=== PATIENT | male | born 1980 | race Hispanic/Latino ===

== ENCOUNTER 2018-03-15 23:04 | Inpatient (IN) | payer OTHER ==
[~2018-03-15] VITALS: Ht 180.3 cm; Wt 99.8 kg
[~2018-03-15 23:04] MED LIST: NALTREXONE HCL50 MG PO; PEN-VEE K,VEET500 MG PO; PERCOCET 5/31 TABLET PO
[2018-03-15 23:23] LABS: BASOPHIL (%) 0.3 % (0-1); BASOPHIL COUNT 0.1 K/uL (0-0.1); EOSINOPHIL (%) 2.2 % (0-5); EOSINOPHIL COUNT 0.4 K/uL (0-0.3); HEMATOCRIT 40.1 % (38.0-50.0); HEMOGLOBIN 13.7 G/DL (12.5-16.6); IMMATURE GRANULOCYTE (%) 0.7 % (0.0-0.7); LYMPHOCYTE COUNT 5.2 K/uL (1.0-2.8); MCH 32.9 PG (29.0-34.0); MCHC 34.2 G/DL (30.0-36.0); MCV 96.2 FL (86-99); MONOCYTE (%) 6.9 % (3-12); MONOCYTE COUNT 1.1 K/uL (0-0.8); NEUTROPHIL (%) 56.9 % (45-76); NEUTROPHIL COUNT 8.9 K/uL (1.8-6.4); PLATELET COUNT 253 K/uL (156-360); RBC DIS.WIDTH-CV 12.8 % (11.8-14.6); RBC DIS.WIDTH-SD 45.3 % (39-53); RED BLOOD COUNT 4.17 M/uL (4.00-5.50); WHITE BLOOD COUNT 15.6 K/uL (4.1-10.2)
[2018-03-15 23:32] LABS: AMYLASE 79 IU/L (1-118); CHLORIDE 105 mEq/L (99-109); SODIUM 139 mEq/L (136-147)
[2018-03-15 23:34] LABS: GLUCOSE 181 mg/dL (70-99)
[2018-03-15 23:37] LABS: SERUM ETHYL ALCOHOL < 10 mg/dL
[2018-03-15 23:38] LABS: CREATININE 1.3 mg/dL (0.6-1.3); GFR ESTIMATE (CALCULATED) > 59 mL/min/ (58.99-99999); UREA NITROGEN (BUN) 17 mg/dL (9-23)
[2018-03-15 23:41] LABS: LIPASE 37 U/L (1.0-51.0)
[2018-03-16] MEDS ORDERED: ONE DAILY FOR1 EACH PO (00:55)
[2018-03-16] MEDS ORDERED: METHADONE 22 MG/1 ML PO (00:59)
[2018-03-16 03:06] VITALS: BP 119/74
[2018-03-16 05:20] LABS: HEMATOCRIT 38.7 % (38.0-50.0); HEMOGLOBIN 13.1 G/DL (12.5-16.6); MCH 32.7 PG (29.0-34.0); MCHC 33.9 G/DL (30.0-36.0); MCV 96.5 FL (86-99); PLATELET COUNT 231 K/uL (156-360); RBC DIS.WIDTH-CV 12.8 % (11.8-14.6); RBC DIS.WIDTH-SD 45.5 % (39-53); RED BLOOD COUNT 4.01 M/uL (4.00-5.50); WHITE BLOOD COUNT 15.6 K/uL (4.1-10.2)
[2018-03-16 05:41] LABS: CHLORIDE 104 MEQ/L (99-109); CREATININE 1.1 MG/DL (0.6-1.3); GFR ESTIMATE (CALCULATED) > 59 mL/min/ (58.99-99999); POTASSIUM 4.4 MEQ/L (3.7-5.4); SODIUM 136 MEQ/L (136-147); UREA NITROGEN (BUN) 15 mg/dL (9-23)
[2018-03-16 05:43] LABS: GLUCOSE 109 mg/dL (70-99)
[2018-03-16 08:25] VITALS: BP 142/92
[2018-03-16 16:14] VITALS: BP 133/86
[2018-03-16 16:21] LABS: APPEARANCE CLEAR ((CLEAR)); BILIRUBIN NEGATIVE; BLOOD NEGATIVE; COLOR YELLOW ((YELLOW)); GLUCOSE (STRIP) NEGATIVE; KETONES NEGATIVE; LEUKOCYTES NEGATIVE; NITRITE NEGATIVE; PROTEIN (STRIP) NEGATIVE; SPECIFIC GRAVITY 1.029 (1.000-1.030); UCUL ADDED? NO; UROBILINOGEN 0.2 MG/DL (0.2-1.0)
[2018-03-16 16:47] LABS: COCAINE NEGATIVE (150 ng/mL); METHAMPHETAMINE NEGATIVE (500 ng/mL); OPIATES (MORPHINE) PRESUMPTIVE POSITIVE (100 ng/mL); PHENCYCLIDINE NEGATIVE (25 ng/mL); THC CANNABINOIDS NEGATIVE (50 ng/mL)
[2018-03-16 16:48] LABS: AMPHETAMINE NEGATIVE (500 ng/mL); BARBITURATES NEGATIVE (200 ng/mL); BENZODIAZEPINES NEGATIVE (150 ng/mL); BUPRENORPHINE NEGATIVE (10 ng/mL); METHADONE PRESUMPTIVE POSITIVE (200 ng/mL); OXYCODONE NEGATIVE (100 ng/mL); PROPOXYPHENE NEGATIVE (300 ng/mL); TRICYCLIC ANTIDEPRESSANTS NEGATIVE (300 ng/mL)
[2018-03-16 20:25] VITALS: BP 127/81
[2018-03-16 23:45] VITALS: BP 137/86
[2018-03-17 05:55] LABS: HEMATOCRIT 37.7 % (38.0-50.0); HEMOGLOBIN 12.5 G/DL (12.5-16.6); MCH 32.2 PG (29.0-34.0); MCHC 33.2 G/DL (30.0-36.0); MCV 97.2 FL (86-99); PLATELET COUNT 213 K/uL (156-360); RBC DIS.WIDTH-SD 46.5 % (39-53); RED BLOOD COUNT 3.88 M/uL (4.00-5.50); WHITE BLOOD COUNT 10.9 K/uL (4.1-10.2)
[2018-03-17 06:34] LABS: CHLORIDE 103 MEQ/L (99-109); CREATININE 0.9 MG/DL (0.6-1.3); GFR ESTIMATE (CALCULATED) > 59 mL/min/ (58.99-99999); GLUCOSE 87 mg/dL (70-99); POTASSIUM 4.2 MEQ/L (3.7-5.4); SODIUM 137 MEQ/L (136-147); UREA NITROGEN (BUN) 13 mg/dL (9-23)
[2018-03-17 08:05] VITALS: BP 140/96
[2018-03-17 15:37] VITALS: BP 137/82
[2018-03-17 23:01] VITALS: BP 134/92
[2018-03-18 08:10] VITALS: BP 133/86
[2018-03-18 16:04] VITALS: BP 143/81
== END 2018-03-18 19:42 | disposition home or self-care (01) | DRG 89 ==
LOC: TRA 23:04 → 3EAST 03-16 01:24 → EDOF 03-16 01:24 → ENRESERV 03-16 01:29 → 3EAST 03-16 02:20
PROVIDERS: Emergency Medicine; Thoracic Surgery (Cardiothoracic Vascular Surgery)
PROC: 2W3EX1Z Immobilization of Right Hand using Splint (ICD-10-PCS; principal; 2018-03-16)
DX: S06.0X9A Concussion with loss of consciousness of unspecified duration, initial encounter (principal); F11.20 Opioid dependence, uncomplicated; S02.40EA Zygomatic fracture, right side, initial encounter for closed fracture; S02.81XA Fracture of other specified skull and facial bones, right side, initial encounter for closed fracture; S62.630A Displaced fracture of distal phalanx of right index finger, initial encounter for closed fracture; S62.620A Displaced fracture of middle phalanx of right index finger, initial encounter for closed fracture; S80.01XA Contusion of right knee, initial encounter; S01.01XA Laceration without foreign body of scalp, initial encounter; M54.9 Dorsalgia, unspecified; R40.2410 Glasgow coma scale score 13-15, unspecified time; V03.10XA Pedestrian on foot injured in collision with car, pick-up truck or van in traffic accident, initial encounter; Y93.01 Activity, walking, marching and hiking; B19.20 Unspecified viral hepatitis C without hepatic coma; F12.10 Cannabis abuse, uncomplicated; F14.10 Cocaine abuse, uncomplicated; F17.210 Nicotine dependence, cigarettes, uncomplicated; Z79.899 Other long term (current) drug therapy
CPT/HCPCS: 70450; 70486; 71260; 72125; 72129; 72132; 73130; 73564; 74177; 80048; 81003; 82150; 83690; 84999; 85025; 85027; 86850; 86900; 86901; G0480; J1170; J7120